=== PATIENT | female | born 1990 | race Caucasian/White ===

== ENCOUNTER 2024-03-14 12:33 | Outpatient (CLI) | payer OTHER, SELFPAY ==
--- NOTE | ~2024-03-14 | MR_ITS ---
MRI of the right femur and right tibia/fibula CLINICAL HISTORY: Pain TECHNIQUE: Axial T1-weighted and STIR images, coronal T1-weighted and STIR images, and sagittal T1-we ighted and STIR images were acquired of both the right femur and right calf. Following intravenous ad ministration of 10 cc MultiHance gadolinium, T1-weighted fat-sat imaging was performed in the axial, coronal, and sagittal planes. FINDINGS: Bone marrow signals of the femur unremarkable. No marrow edema, fracture, or periosteal rosas ction. No evidence for osteomyelitis. Visualized musculature in the thigh is unremarkable. No muscle atrophy or edema seen. Visually tendon s are intact. Subcutaneous soft tissues are unremarkable. No fluid collection or mass lesion identifi ed. No abnormal contrast enhancement identified. Bone marrow signals of the tibia/fibula and visualized hindfoot are unremarkable. No marrow edema, fr acture, or periosteal reaction. No evidence for osteomyelitis. Visualized musculature in the calf is unremarkable. No muscle atrophy or edema seen. Visualized tendo ns are intact. Subcutaneous soft tissues are unremarkable. No fluid collection or mass lesion seen. No abnormal postcontrast enhancement identified. IMPRESSION: Unremarkable examination of the right thigh and right calf. Reviewed, dictated and finalized at location .
== END 2024-03-14 12:34 ==
PROVIDERS: PCP Physician Assistant; Visit Provider Physician Assistant
DX: M79.604 Pain in right leg (principal)
CPT/HCPCS: 73720; A9577

== ENCOUNTER 2024-05-09 13:36 | Outpatient (CLI) | payer OTHER, SELFPAY ==
--- NOTE | ~2024-05-09 | MR_ITS ---
MRI of the brain Clinical History: Ataxia Technique: Axial and sagittal T1-weighted images were acquired. These were followed by axial T2-weigh jaxon, diffusion weighted, gradient, and FLAIR images.. Following intravenous administration of 10 cc M ultiHance gadolinium, T1-weighted fat-sat imaging was performed in the axial and coronal planes. Findings: No abnormal signal seen in the brain parenchyma. No acute infarct, intracranial hemorrhage, or mass lesion. Ventricles and subarachnoid spaces are unremarkable. Orbits are unremarkable. Paranasal sinuses and m astoid air cells are clear. Major intracranial flow voids are intact. Sagittal midline structures are intact. No abnormal postcontrast enhancement identified. IMPRESSION: Normal exam. Reviewed, dictated and finalized at location M. IMPRESSION: Normal exam.
== END 2024-05-09 13:37 | disposition home or self-care (01) ==
PROVIDERS: PCP Physician Assistant
DX: R27.0 Ataxia, unspecified (principal)
CPT/HCPCS: 70553; A9577